=== PATIENT | male | born 1950 ===

== ENCOUNTER 2024-02-22 07:32 | Day surgery (SDC) | payer OTHER ==
[~2024-02-22] VITALS: Ht 167.6 cm; Wt 76.8 kg
[2024-02-22] VITALS (14 sets, daily range): BP systolic 107–158; BP diastolic 72–102
[~2024-02-22 07:32] MED LIST: ESOM20 PO; Lactated Ringer's 1,000 ML IV SCH
--- NOTE | 2024-02-22 08:12 | NUR ---
PT TO [facility] FOR COLONOSCOPY. CHART REVIEWED. PLAN OF CARE DISCUSSED WITH PT. PT HAS RIDE HOME SET.
[2024-02-22] MEDS ORDERED: propofoL 20 ML IV ONE (08:46)
--- NOTE | 2024-02-22 09:01 | NUR ---
02/22/24 0901 Farida Dorantes HISTORY, CHART, MEDICATIONS AND ALLERGIES REVIEWED BEFORE START OF PROCEDURE. PATIENT CONFIRMS NPO STATUS AND AGREES WITH SCHEDULED PROCEDURE. 3-LEAD EKG REVIEWED WITH PHYSICIAN PRIOR TO START OF PROCEDURE. MONITOR INTACT WITH CONTINUOUS PULSE OXIMETRY,CAPNOGRAPHY, 3-LEAD EKG, INTERMITTENT BP. SUPPLEMENTAL O2 TO BE TITRATED THROUGHOUT PROCEDURE TO MAINTAIN O2 SATURATION ABOVE 90%. PATIENT DETERMINED TO BE ASA APPROPRIATE FOR PROPOFOL SEDATION PRIOR TO START OF PROCEDURE BY
--- NOTE | 2024-02-22 09:43 | NUR ---
Discharge instructions reviewed with patient. Patient verbalizes understanding. Copy given to patient to take home. Discharged via wheelchair to private car for ride home.
== END 2024-02-22 09:45 | disposition home or self-care (01) ==
LOC: ORSCMMR 07:32 → ORD 08:30 → ORSCMMR 09:45
PROVIDERS: Internal Medicine Gastroenterology
PROC: 0DBK8ZX Excision of Ascending Colon, Via Natural or Artificial Opening Endoscopic, Diagnostic (ICD-10-PCS; principal; 2024-02-22 08:30)
DX: Z12.11 Encounter for screening for malignant neoplasm of colon (principal); K21.9 Gastro-esophageal reflux disease without esophagitis; Z79.899 Other long term (current) drug therapy
CPT/HCPCS: 88305; J2704; J7120